=== PATIENT | male | born 1970 | race Caucasian/White ===

== ENCOUNTER 2019-05-21 17:31 | Emergency (ER) | payer SELFPAY ==
--- NOTE | 2019-05-21 18:49 | ER Document Report ---
ED Medical Screen (RME) - General Chief Complaint: Suicidal Ideation Stated Complaint: PSYCH Time Seen by Provider: 05/21/19 18:31 Mode of Arrival: Ambulatory Information source: Patient Notes: Patient is a 48-year-old male presented to the emergency department with chief complaint of suicidal ideations. Patient reports he was seen at the crisis/detox center. He states he has been there for 4 days. He states he wanted to go there to detox off of his Suboxone. He states he usually takes 8 mg of Suboxone daily. He states they cut him off cold turkey. He states that they also changed all of his antidepression medications which sent him into a deep depression. He reports he was thinking of hanging himself. Patient is alert, oriented and answering all questions appropriately. He is calm and cooperative. He does have somewhat of a flat affect and is tearful. I have greeted and performed a rapid initial assessment of this patient. A comprehensive ED assessment and evaluation of the patient, analysis of test results and completion of the medical decision making process will be conducted by additional ED providers. I have specifically instructed the patient or family members with the patient to immediately return to any nursing staff should anything change in the patient's condition or with their chief complaint. This medical record was dictated with voice recognizing software. There may be grammatical, syntax errors that are unintended. - Related Data Allergies/Adverse Reactions: No Known Allergies Allergy (Verified 05/21/19 17:36) Home Medications: clonipine 1mg BID. adderol 30mg BID. seroquel 100mg AM, 200mg HS. gabapentin 800mg QID. ceboxin 8mg BID Past Medical History - Social History Chew tobacco use (# tins/day): No Frequency of alcohol use: None Drug Abuse: Marijuana Renal/ Medical History: Denies: Hx Peritoneal Dialysis Psychiatric Medical History: Reports: Hx Attention Deficit Hyperactivity Disorder, Hx Bipolar Disorder, Hx Depression - &anxiety Past Surgical History: Reports: Hx Appendectomy Physical Exam - Vital signs Vitals: Temp Pulse Resp BP Pulse Ox 98.1 F 79 18 128/80 H 92 05/21/19 17:38 05/21/19 17:38 05/21/19 17:38 05/21/19 17:38 05/21/19 17:38 Course - Vital Signs Vital signs: Temp Pulse Resp BP Pulse Ox 98.1 F 79 18 128/80 H 92 05/21/19 17:38 05/21/19 17:38 05/21/19 17:38 05/21/19 17:38 05/21/19 17:38
[2019-05-21 19:30] LABS: ABSOLUTE BASOPHILS # (AUTO) 0.1 10^3/uL (0.0-0.2); ABSOLUTE EOSINOPHILS # (AUTO) 0.5 10^3/uL (0.0-0.6); ABSOLUTE LYMPHOCYTES (AUTO) 2.5 10^3/uL (0.5-4.7); ABSOLUTE MONOCYTES (AUTO) 0.8 10^3/uL (0.1-1.4); ABSOLUTE NEUT (AUTO) 4.3 10^3/uL (1.7-8.2); BASOPHILS % (AUTO) 0.9 % (0-2); EOSINOPHILS % (AUTO) 6.1 % (0-6); HEMATOCRIT 46.7 % (37.9-51.0); HEMOGLOBIN 15.9 g/dL (13.5-17.0); LYMPHOCYTES % (AUTO) 30.5 % (13-45); MEAN CORPUSCULAR VOLUME 94 fl (80-97); MONOCYTES % (AUTO) 9.9 % (3-13); PLATELET COUNT 262 10^3/uL (150-450); RED BLOOD COUNT 4.97 10^6/uL (4.35-5.55); RED CELL DISTRIBUTION WIDTH 13.8 % (11.5-14.0); SEGMENTED NEUTROPHILS % (AUTO) 52.6 % (42-78); TOTAL CELLS COUNTED % (AUTO) 100 %; WHITE BLOOD COUNT 8.2 10^3/uL (4.0-10.5)
[2019-05-21 19:46] LABS: APPEARANCE,URINE CLEAR; BILIRUBIN,URINE NEGATIVE (NEGATIVE); COLOR,URINE YELLOW; GLUCOSE, URINE NEGATIVE (NEGATIVE); KETONES,URINE NEGATIVE (NEGATIVE); LEUKOCYTE ESTERASE,URINE NEGATIVE (NEGATIVE); NITRITE,URINE NEGATIVE (NEGATIVE); PROTEIN,URINE NEGATIVE (NEGATIVE); URINE SPECIFIC GRAVITY 1.016
[2019-05-21 19:54] LABS: ALBUMIN 4.6 g/dL (3.5-5.0); ALKALINE PHOSPHATASE 114 U/L (38-126); ANION GAP 9 (5-19); ASPARTATE AMINO TRANSFERASE 328 U/L (17-59); BILIRUBIN,DIRECT 0.3 mg/dL (0.0-0.4); BILIRUBIN,TOTAL 0.7 mg/dL (0.2-1.3); BLOOD UREA NITROGEN 15 mg/dL (7-20); CALCIUM 10.2 mg/dL (8.4-10.2); CARBON DIOXIDE 31 mmol/L (22-30); CHLORIDE 99 mmol/L (98-107); GLUCOSE 88 mg/dL (75-110); TOTAL PROTEIN 8.8 g/dL (6.3-8.2)
[2019-05-21 19:58] LABS: ACETAMINOPHEN < 10 ug/mL (10-30); ALCOHOL < 10 mg/dL (NONE DETECTED); POTASSIUM 5.3 mmol/L (3.6-5.0); SALICYLATE < 1.0 mg/dL (2.0-20.0)
[2019-05-21 20:03] LABS: URINE AMPHETAMINES SCREEN NEGATIVE; URINE BARBITURATES SCREEN NEGATIVE; URINE BENZODIAZEPINES SCREEN UNCONFIRMED POSITIVE; URINE COCAINE SCREEN NEGATIVE; URINE MARIJUANA (THC) SCREEN UNCONFIRMED POSITIVE; URINE METHADONE SCREEN NEGATIVE; URINE PHENCYCLIDINE SCREEN NEGATIVE
[2019-05-21] MEDS ORDERED: QUETIAPINE FUMARATE 100 MG TABLET PO ONE (22:09)
--- NOTE | 2019-05-21 22:14 | ER Document Report ---
ED General - General Stated Complaint: PSYCH Time Seen by Provider: 05/21/19 18:31 Primary Care Provider: CELESTE RAE [Primary Care Provider] - Follow up as needed Mode of Arrival: Ambulatory TRAVEL OUTSIDE OF THE [place] IN LAST 30 DAYS: No - HPI Notes: 48-year-old male with history of polysubstance abuse, comes from [facility] under involuntary commitment papers. Patient apparently verbalizes his intention to commit suicide. States he hung himself before we do it again. He apparently checked in 4 days ago was abruptly cut off from his Suboxone, benzodiazepines and all his psychiatric medicines according to him. He become increasing more despondent. He denies any medical complaint. Continues to verbalize suicidal ideation. Moderate intensity, nonradiating, gradual onset. No other modifying factors, no other associated symptoms, no other provocative or palliative factors. - Related Data Allergies/Adverse Reactions: No Known Allergies Allergy (Verified 05/21/19 17:36) Home Medications: clonipine 1mg BID. adderol 30mg BID. seroquel 100mg AM, 200mg HS. gabapentin 800mg QID. ceboxin 8mg BID Past Medical History - General Information source: Patient - Social History Smoking Status: Current Every Day Smoker Chew tobacco use (# tins/day): No Frequency of alcohol use: None Drug Abuse: Marijuana Family History: Reviewed & Not Pertinent Patient has suicidal ideation: Yes Patient has homicidal ideation: No Renal/ Medical History: Denies: Hx Peritoneal Dialysis Psychiatric Medical History: Reports: Hx Attention Deficit Hyperactivity Disorder, Hx Bipolar Disorder, Hx Depression - &anxiety Past Surgical History: Reports: Hx Appendectomy Review of Systems - Review of Systems Notes: Review of systems as in the history of present illness, otherwise negative x 10 systems. Physical Exam - Vital signs Vitals: Temp Pulse Resp BP Pulse Ox 98.1 F 79 18 128/80 H 92 05/21/19 17:38 05/21/19 17:38 05/21/19 17:38 05/21/19 17:38 05/21/19 17:38 - Notes Notes: General: Well developed . HEENT: Normocephalic, atraumatic. Pupils equal round reactive to light. No JVD. Chest: No trauma. Respiratory: Good air exchange, normal excursion. Cardiac: Regular rhythm. No murmurs or gallops. Abdomen: Soft, benign. Nondistended. Nontender. Back: No asymmetry or gross abnormality. Motor: Grossly normal power and tone. Neurologic: Alert, nonfocal. Cranial nerves II-12 are intact. Sensation intact. Vascular: Well perfused. Normal peripheral pulses. Skin: No petechiae or purpura. Course - Re-evaluation Re-evalutation: 05/21/19 22:12 48-year-old male presents with suicidal ideation under IVC petition. Patient risk of suicidality is high. At this point he appears to be medically stable with no acute emergent condition. I reviewed his psychiatric screening labs, they are unremarkable. His potassium is trace elevated but they believe this is hemolyzed, especially in the face of normal creatinine. Will be evaluated by the psychiatric team for placement in the morning. - Vital Signs Vital signs: Temp Pulse Resp BP Pulse Ox 98.1 F 79 18 128/80 H 92 05/21/19 17:38 05/21/19 17:38 05/21/19 17:38 05/21/19 17:38 05/21/19 17:38 - Laboratory Result Diagrams: 05/21/19 19:09 05/21/19 19:09 Laboratory results interpreted by me: 05/21/19 05/21/19 05/21/19 19:09 19:09 19:09 Eosinophils % 6.1 H Potassium 5.3 H Carbon Dioxide 31 H AST 328 H Total Protein 8.8 H Urine Urobilinogen 4.0 H Urine Ascorbic Acid 40 H Salicylates < 1.0 L Acetaminophen < 10 L Discharge - Discharge Clinical Impression: Suicidal ideation Condition: Stable Disposition: PSYCH HOSP/UNIT Referrals: LOCAL,NO [Primary Care Provider] - Follow up as needed
--- NOTE | 2019-05-22 10:22 | ER Document Report ---
Doctor's Note Notes: 05/22/19 10:20 Rounds: Chart reviewed and patient interviewed. Patient is a little shaky. Says he was in detox from Suboxone since Saturday. Last Suboxone was Saturday. Patient is also being evaluated for suicidal thoughts. Vital signs are all normal. Lab studies showed a potassium of 5.3, AST of 324, and positive benzos and marijuana on drug testing. Patient appears to be medically stable for transfer or discharge. David Albright MD
[2019-05-22] MEDS ORDERED: CHLORPROMAZINE HCL 50 MG TABLET PO PRN (15:49)
[2019-05-22] MEDS: GABAPENTIN 300 MG CAPSULE PO SCH ×2 (16:05→18:39)
[2019-05-22] MEDS: BENZTROPINE MESYLATE 1 MG TABLET PO SCH (16:05)
[2019-05-22] MEDS: OLANZAPINE 5 MG TABLET PO SCH (18:39)
[2019-05-23 06:26] VITALS: BP 104/70
[2019-05-23] MEDS: OLANZAPINE 5 MG TABLET PO SCH (09:22)
[2019-05-23] MEDS: BENZTROPINE MESYLATE 1 MG TABLET PO SCH (09:22)
[2019-05-23] MEDS: GABAPENTIN 300 MG CAPSULE PO SCH (09:22)
--- NOTE | 2019-05-23 10:17 | EKG REPORT ---
SEVERITY:- NORMAL ECG - SINUS RHYTHM : Confirmed by: Bridgett English 23-May-2019 10:16:17
--- NOTE | 2019-05-23 10:22 | PSYCHOLOGICAL NOTE ---
Psych Note - Psych Note Date seen by psych provider: 05/22/19 Time seen by psych provider: 09:00 Psych Note: Reason for Consult: IVC Patient is a 48-year-old male presented to the emergency department with chief complaint of suicidal ideations. Patient reports he was seen at the crisis/detox center. He states he has been there for 4 days. He states he wanted to go there to detox off of his Suboxone. He states he usually takes 8 mg of Suboxone daily. He states they cut him off cold turkey. Antisocial personality disorder Substance abuse Medication recommendations per [facility]'s contracted psychiatrist Dr. Delmy BRANTLEY are as follows Zyprexa 5 mg twice daily Cogentin 1 mg daily gabapentin 600 mg 3 times daily Thorazine 50 mg every 6 hours as needed Impression\plan: Patient is recommended to continue under IVC. She continues to endorse suicidal ideation with plan. Medication recommendations have been provided to assist in stabilization. Patient will be reevaluated. Dr. Joe was consulted to care management of this patient; attending physicians in agreement with recommendations and disposition.
--- NOTE | 2019-05-23 10:27 | PSYCHOLOGICAL NOTE ---
Psych Note - Psych Note Date seen by psych provider: 05/23/19 Time seen by psych provider: 08:00 Psych Note: Reason for Consult: IVC Patient is a 48-year-old male presented to the emergency department with chief complaint of suicidal ideations. Patient reports he was seen at the crisis/detox center. He states he has been there for 4 days. He states he wanted to go there to detox off of his Suboxone. He states he usually takes 8 mg of Suboxone daily. He states they cut him off cold turkey. Checking conducted with patient Patient identifies feeling much better and getting a good night sleep. When discussing plan of care patient request to stay another night. Patient understands stabilization has occurred and he is unable to stay in the emergency department. Patient requested clinician contact [facility] mobile crisis from [place] as that is where he is from and they brought him to [facility]. Clinician contacted mobile crisis with [facility] in [place]. They confirm they will assist with transportation back to [place]. Patient is known to them and is homeless. Homeless Antisocial personality disorder Substance abuse Medication recommendations per [facility]'s contracted psychiatrist Dr. Delmy BRANTLEY are as follows Zyprexa 5 mg twice daily Cogentin 1 mg daily gabapentin 600 mg 3 times daily Impression\plan: Patient is recommended to for rescind of IVC and is cleared from acute psychiatric services. Patient has stabilized and demonstrates euthymic mood and congruent affect i.e. smiles engages clinician. Patient identifies sleeping well the previous night. He denies current suicidal ideation. Patient demonstrates some behavioral aspects when discussing discharge (i.e. asking to stay another night and then stating he just woke up so his suicidal ideation might come back) is highly probable this is directly co rrelating with the patient wanting to stay for social support (i.e. food and a safe for place to sleep). Patient is recommended to engage in therapeutic services and medication management. Mobile crisis with [facility] confirms they will transport patient back to [place]. Dr. Joe was consulted to care management of this patient; attending physicians in agreement with recommendations and disposition.
--- NOTE | 2019-05-23 10:28 | ER Document Report ---
Doctor's Note Notes: 05/23/19 10:27 Rounds: Chart reviewed and patient interviewed. Vital signs are all normal. No new labs to review. Says he is feeling better since he started on the medications being given here. Mental health has suggested patient should be able to leave today. Patient says he does not feel he is ready yet. Patient ap pears to be medically stable for transfer or discharge. David Albright MD
== END 2019-05-23 11:03 | disposition home or self-care (01) ==
LOC: ER 17:31
DX: R45.851 Suicidal ideations (principal); F12.10 Cannabis abuse, uncomplicated; F17.200 Nicotine dependence, unspecified, uncomplicated
CPT/HCPCS: 36415; 80053; 80307; 81001; 85025; 93005; 93010; 99285; J3490